=== PATIENT | female | born 1985 | race Caucasian/White ===

== ENCOUNTER 2023-09-06 20:40 | Emergency (ER) | payer OTHER, SELFPAY ==
[2023-09-06 20:41] VITALS: BP 127/98; PULSE 89; RESP 16; TEMP 36.3; O2SAT 97; BMI 34.7
--- NOTE | 2023-09-06 21:43 | EKG12_ITS ---
Test Reason : MHC Blood Pressure : / mmHG Vent. Rate : 083 BPM Atrial Rate : 083 BPM P-R Int : 172 ms QRS Dur : 090 ms QT Int : 368 ms P-R-T Axes : 033 -06 050 degrees QTc Int : 432 ms Normal sinus rhythm Nonspecific T wave abnormality Abnormal ECG Confirmed by KEAGAN CHONG, DARLINE ([id number]), editor school photograph DAISY GODOY ([id number]) on 09/13/2023 6:58:32 AM Referred By: Elijah Parker Confirmed By:RONAK BOOGIE MD
--- NOTE | 2023-09-06 21:44 | EX.ED.VIS.PS ---
HPI HPI - Psych History of Present Illness Chief Complaint: Suicidal Narrative Narrative: 38-year-old female past medical history of bipolar disorder, states she usually gets depressed around the wintertime with seasonal affect disorder. She presents with her because of increasing suicidal ideation with plan to overdose on medication. 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 She has never been admitted for psychiatric reasons. Over the last week or so, she has been more depressed. She endorses anhedonia, decreased appetite, and hypersomnolence. She states that she would plan on overdosing on her medication. She states that her takes Elavil for headaches. She planned on overdosing on her full bottle of Lunesta, then taking his Elavil when she started to feel it kick in. She states that she had been out of one of her medications, Vyvanse, for a week but had not filled on Wednesday. She is unsure if her not being on that had contributed to her increased depression and suicidal ideation. [facility] Medical History (Updated 09/06/23 @ 22:08 by Ewa Esparza) Bipolar disorder Home Medications bupropion HCl 300 mg 24 hr tablet, extended release (Wellbutrin XL) 300 mg PO .qam 09/06/23 [History Last Taken Unknown] cholecalciferol (vitamin D3) 50 mcg (2,000 unit) capsule (D3-2000) 2,000 unit PO DAILY 09/06/23 [History Last Taken Unknown] eszopiclone 1 mg tablet (Lunesta) 1 mg PO QHS PRN sleep 09/06/23 [History Last Taken Unknown] ferrous sulfate 325 mg (65 mg iron) tablet (Feosol) 325 mg PO DAILY 09/06/23 [History Last Taken Unknown] hydroxyzine pamoate 25 mg capsule 25 mg PO BID PRN anxiety 09/06/23 [History Last Taken Unknown] lamotrigine 100 mg tablet (Lamictal) 100 mg PO DAILY 09/06/23 [History Last Taken Unknown] lamotrigine 150 mg tablet (Lamictal) 150 mg PO QHS 09/06/23 [History Last Taken Unknown] lisdexamfetamine 30 mg capsule (Vyvanse) 30 mg PO .qam 09/06/23 [History Last Taken Unknown] vortioxetine 20 mg tablet 20 mg PO .qam 09/06/23 [History Last Taken Unknown] Allergy/AdvReac Type Severity Reaction Status Date / Time zolpidem [From Ambien] Allergy Mild Angioedema Verified 09/06/23 22:11 Social History Smoking Status: Never smoker ROS ROS ED ROS Narrative Constitutional: No fever, no chills. HEENT: No sore throat. No neck pain. No loss of vision. No rhinorrhea. Cardiovascular: No chest pain. No palpitations. No pedal edema. Respiratory: No cough, no shortness of breath. Abdominal: No abdominal pain. No nausea. No vomiting. Genitourinary: No dysuria. No hematuria. Musculoskeletal: No myalgias. No arthralgias. Neurologic: No headaches. No dizziness. No lightheadedness. Skin: No rash. No change in color. Psychiatric: No depression. No anxiety. EXAM Physical Exam Narrative Exam Narrative: Afebrile. Vital signs noted. HEENT: Normocephalic. Atraumatic. PERRL, EOMI. Neck soft and supple. No point tenderness or step off. Cardiovascular: Regular rate and rhythm. No murmurs, rubs, or gallops appreciated. Respiratory: No tachypnea. Lungs clear to auscultation bilaterally. Gastrointestinal: Abdomen soft, nontender, with normoactive bowel sounds. No rebound or guarding. Neurological: Awake. Alert. Nonfocal, nonlateralizing. Skin: No rash. Normal color. No pallor. Musculoskeletal: No pedal edema. Full range of motion extremities. Psychiatric: Suicidal ideation with plan to overdose. Mildly depressed affect. Const Vital Signs: 09/06/23 20:41 09/06/23 22:28 09/06/23 23:01 Temperature 97.3 F L Temperature Source Temporal Pulse Rate 89 77 Respiratory Rate 16 18 16 Blood Pressure 127/98 H Blood Pressure Mean 107 Pulse Ox 97 98 Oxygen Delivery Method Room Air Room Air MDM MDM MDM Narrative Medical decision making narrative: Medical clearance labs were obtained. I reviewed her laboratory work today. I do feel that given her suicidal ideation and depression that she will most likely need placement after evaluation. Review of her laboratory work shows normal white count 9.2, hemoglobin 13.2, platelet count normal at 318. CMP shows potassium slightly low at 3.2 which was replaced orally with 40 mill equivalents. Glucose is appropriately elevated at 122 with an anion gap low at 4. Serum is negative. Ethyl alcohol is also negative. Urine for drugs of abuse is positive for barbiturates, amphetamines, and MDMA which may be from her psychiatric medications. Patient signed out to oncoming physician to continue observation of this patient as I feel she may require placement in a psychiatric facility. Patient is in stable condition. History & Record Review Discussion w/independent historian: Patient and Family Additional record(s) reviewed:: No prior records Lab Data Attestation: I reviewed the patient's lab results. Labs: Laboratory Results - last 24 hr 09/06/23 09/06/23 21:58 22:25 WBC 9.2 RBC 4.42 Hgb 13.2 Hct 40.3 MCV 91.2 MCH 29.9 MCHC 32.8 RDW Std Deviation 41.4 RDW Coeff of Melo 12.5 Plt Count 318 MPV 10.5 Immature Gran % (Auto) 1.200 H Neut % (Auto) 57.0 Lymph % (Auto) 32.6 Brewster % (Auto) 6.3 Eos % (Auto) 2.2 Baso % (Auto) 0.7 Absolute Neuts (auto) 5.3 Absolute Lymphs (auto) 3.00 Nucleated RBC % 0 Sodium 140 Potassium 3.2 L Chloride 109 H Carbon Dioxide 27.0 Anion Gap 4 L BUN 11 Creatinine 0.83 Estim Creat Clear Calc 71.97 Est GFR (MDRD) Af Amer 99 Est GFR (MDRD) Non-Af 81 BUN/Creatinine Ratio 13.3 Glucose 122 H Calcium 9.1 Serum , Qual NEGATIVE Urine Opiates Screen NEGATIVE Urine Methadone Screen NEGATIVE Ur Barbiturates Screen POSITIVE H Ur Phencyclidine Scrn NEGATIVE Ur Amphetamines Screen POSITIVE H MDMA (Ecstasy) Screen POSITIVE H U Benzodiazepines Scrn NEGATIVE Urine Cocaine Screen NEGATIVE U Cannabinoids Screen NEGATIVE Ur Drug Screen Comment Ethyl Alcohol < 3.0 Differential Diagnosis Differential Diagnosis: Not applicable Discharge Plan Triage Chief Complaint: Suicidal ED Provider: Elijah Parker Dx/Rx/DC Orders Prescriptions: No Action lamotrigine [Lamictal] 100 mg tablet 100 mg PO DAILY lamotrigine [Lamictal] 150 mg tablet 150 mg PO QHS vortioxetine 20 mg tablet 20 mg PO .qam bupropion HCl [Wellbutrin XL] 300 mg tablet extended release 24 hr 300 mg PO .qam lisdexamfetamine [Vyvanse] 30 mg capsule 30 mg PO .qam cholecalciferol (vitamin D3) [D3-2000] 50 mcg (2,000 unit) capsule 2,000 unit PO DAILY ferrous sulfate [Feosol] 325 mg (65 mg iron) tablet 325 mg PO DAILY hydroxyzine pamoate 25 mg capsule 25 mg PO BID PRN (Reason: anxiety) eszopiclone [Lunesta] 1 mg tablet 1 mg PO QHS PRN (Reason: sleep) Primary Care Provider: Magalie Ferreira Referrals: Magalie Ferreira, [facility] [Primary Care Provider] -
[2023-09-06 22:09] LABS: Absolute Neutrophil Count 5.3 X10^3/uL (2.0-7.7); Basophil# 0.06 X10^3/uL; Basophil% 0.7 % (0-1); Eosinophils% 2.2 % (0-5); Hematocrit 40.3 % (37-47); Hemoglobin 13.2 g/dL (12.0-15.0); Lymphocyte % 32.6 % (19-41); Mean Corp Hgb Conc 32.8 g/dL (32-36); Mean Corpuscular Hgb 29.9 pg (27.0-32.0); Mean Corpuscular Volume 91.2 fL (81-99); Mean Platelet Vol. 10.5 fl (6.2-12.0); Monocyte# 0.58 X10^3/uL; Monocyte% 6.3 % (0-10); NRBC Flagged by Analyzer 0 % (0-5); Neutrophil # 5.26 X10^3/uL (2.7-7.7); Platelet Count 318 K/mm3 (150-450); RBC Distribution Width CV 12.5 % (11.6-14.6); RBC Distribution Width SD 41.4 fl (35.1-43.9); Red Blood Count 4.42 M/mm3 (4.2-5.4); White Blood Count 9.2 K/mm3 (4.4-11.0)
[2023-09-06 22:23] LABS: Alcohol, Blood (Medical)-Serum < 3.0 mg/dL
[2023-09-06 22:24] LABS: Anion Gap 4 (5-15); BUN 11 mg/dL (7-18); BUN/Creat Ratio 13.3 RATIO (10-20); Calcium,Total 9.1 mg/dL (8.5-10.1); Chloride 109 mmol/L (98-107); Creatinine, Serum 0.83 mg/dL (0.55-1.02); EST Glomerular Filtration Rate 81 mL/min (>60); Est Glom Filt Rate - Afr Amer 99 mL/min (>60); Estimated Creatinine Clearance 71.97 ml/min; Glucose 122 mg/dL (74-106); Potassium 3.2 mmol/L (3.5-5.1); Sodium Level 140 mmol/L (136-145)
[2023-09-06 22:28] VITALS: RESP 18
[2023-09-06 22:37] LABS: Internal QC Validated? YES +Cl - CLEAR BKGD; Pregnancy, Serum, hCG Quali. NEGATIVE Negative
[2023-09-06] MEDS: Potassium Chloride Oral Tablet 20 MEQ 40 MEQ PO (22:59)
[2023-09-06 23:01] VITALS: PULSE 77; RESP 16; O2SAT 98
[2023-09-06 23:09] LABS: Amphetamine Urine VISTA POSITIVE (<1000 ng/mL); Barbiturate Urine VISTA POSITIVE (< 200 ng/mL); Benzodiazepine Urine VISTA NEGATIVE (< 200 ng/mL); Cocaine Urine VISTA NEGATIVE (< 300 ng/mL); Ecstacy Urine VISTA POSITIVE (< 500 ng/mL); Methadone Urine VISTA NEGATIVE (< 300 ng/mL); PCP Urine VISTA NEGATIVE (< 25 ng/mL); THC Urine VISTA NEGATIVE (< 50 ng/mL); Vista UDS pH Range 5
[2023-09-07 00:30] VITALS: PULSE 75; RESP 18; O2SAT 98
== END 2023-09-07 01:19 | disposition home or self-care (01) ==
PROVIDERS: Emergency Provider Emergency Medicine; PCP Nurse Practitioner Family; Referring Provider Emergency Medicine; Visit Provider Emergency Medicine
DX: R45.851 Suicidal ideations (principal); F31.9 Bipolar disorder, unspecified; Z79.899 Other long term (current) drug therapy
CPT/HCPCS: 80048; 80307; 82077; 84703; 85025; 87811; 93005; 99284